=== PATIENT | male | born 1985 | race Caucasian/White ===

== ENCOUNTER → 2021-09-28 16:22 | Outpatient (CLI) | payer BC, SELFPAY ==
[2021-09-30 09:14] LABS: FSH 12.3 mIU/mL (1.5-12.4)
== END ==
PROVIDERS: Visit Provider Specialist
DX: E29.1 Testicular hypofunction (principal)
CPT/HCPCS: 36415; 82670; 83001; 83002; 84403

== ENCOUNTER → 2022-01-05 11:44 | Outpatient (CLI) | payer BC, SELFPAY ==
[2022-01-05 12:42] LABS: Hematocrit 46.2 % (42.0-52.0)
[2022-01-06 08:18] LABS: Estradiol 18.3 pg/mL (7.6-42.6)
[2022-01-14 01:08] LABS: Testosterone, Total, LC/MS 356.3 ng/dL (264.0-916.0)
== END ==
PROVIDERS: Visit Provider Specialist
DX: E29.1 Testicular hypofunction (principal)
CPT/HCPCS: 36415; 82670; 84403; 85014

== ENCOUNTER → 2022-02-10 07:48 | Outpatient (CLI) | payer BC, SELFPAY ==
[2022-02-10 08:18] LABS: Hematocrit 40.2 % (42.0-52.0)
[2022-02-11 08:22] LABS: Estradiol 29.9 pg/mL (7.6-42.6); LH 9.3 mIU/mL (1.7-8.6)
[2022-02-14 18:12] LABS: Testosterone, Total, LC/MS 548 ng/dL (.)
== END ==
PROVIDERS: Visit Provider Specialist
DX: E29.1 Testicular hypofunction (principal)
CPT/HCPCS: 36415; 82670; 83002; 84403; 85014

== ENCOUNTER 2022-09-02 13:04 | Day surgery (SDC) | payer BC, SELFPAY ==
[2022-09-02] VITALS (18 sets, daily range): BP systolic 121–160; BP diastolic 73–94; PULSE 62–96; RESP 14–20; TEMP 36.1–43; O2SAT 92–98; BMI 21.4
--- NOTE | 2022-09-02 14:10 | CT_ITS ---
FINAL REPORT TECHNIQUE: Postcontrast axial images through the abdomen and pelvis were performed. This study was performed with techniques to keep radiation doses as low as reasonably achievable, (ALARA). Individualized dose reduction techniques using automated exposure control or adjustment of mA and/or kV according to the patient's size were employed. CLINICAL HISTORY: right lower abdominal pain FINDINGS: Abdomen: There is mild scarring in the left lung base. There is fatty infiltration of the liver. The spleen is unremarkable. The adrenals are normal. The pancreas is unremarkable. The kidneys enhance appropriately. The aorta is normal in caliber. No free fluid or adenopathy is identified. No findings for mechanical bowel obstruction are identified. Pelvis: The appendix is mildly enlarged measuring 8 mm without significant adjacent inflammation. The right seminal vesicle and right vas deferens are enlarged of uncertain significance but most worrisome for inflammation/vasitis. The urinary bladder is unremarkable. No free fluid, free air, abscess or adenopathy is identified. IMPRESSION: Mildly enlarged appendix without significant adjacent inflammation, early or mild appendicitis is not excluded. If indicated, follow-up CT may be helpful. Right seminal vesicle and right vas deferens are enlarged most worrisome for inflammation/vasitis. Reviewed, Interpreted and Dictated by Adam Clark III, MD Transcribed by Isabell Avilez Authenticated and [facility]
[2022-09-02 14:28] LABS: Basophils # 0.1 K/mm3 (0-0.2); Basophils % 0.8 % (0.1-2.0); Eosinophils # 0.2 K/mm3 (0.0-0.4); Eosinophils % 2.8 % (0.1-12.0); Hematocrit 46.2 % (42.0-52.0); Hemoglobin 15.2 g/dL (14.1-18.0); Lymphocytes # 2.2 K/mm3 (0.7-4.5); Lymphocytes % 28.1 % (10-50); Mean Corpuscular HGB Conc 32.9 g/dL (31.8-35.4); Mean Corpuscular Hemoglobin 30.7 pg (27.0-31.2); Mean Corpuscular Volume 93.5 fl (80-94); Mean Platelet Volume 9.9 fl (7.4-10.4); Monocytes # 0.5 K/mm3 (0.1-1.0); Monocytes % 6.3 % (1.7-9.3); Neutrophils # 4.8 K/mm3 (1.8-7.8); Platelet Count 265 K/mm3 (142-424); Red Blood Count 4.94 M/mm3 (4.60-6.20); Red Cell Distribution Width 13.7 % (11.5-17.5); White Blood Count 7.8 K/mm3 (4.8-10.8)
--- NOTE | 2022-09-02 14:49 | PC.NURSE ---
pt in CT
--- NOTE | 2022-09-02 15:08 | HMH.EDGENADL ---
Discharge Plan Disposition Patient Disposition: Still a Patient Condition: Good Chief Complaint: Abdominal Pain Prescriptions Prescriptions: No Action cephalexin 500 MG capsule 500 mg PO TID Qty: 30 0RF hydrocodone-acetaminophen 1 TAB tablet 1 tab PO TID PRN (Reason: Moderate To Severe Pain) Qty: 12 0RF Referrals Follow up/Referrals: Provider,Referral, [Primary Care Provider] - See instructions Clinical Impressions Clinical Impression: Acute appendicitis Discharge ED Provider: Emeka Jordan General Adult HPI General Chief complaint: Abdominal Pain Stated complaint: Lower RT abd pain Time Seen by Provider: 09/02/22 15:03 Mode of Arrival: Ambulatory Source of Information: Patient Limitations: No Limitations Description of Symptoms (Recalled from ER Triage Doc. by RN): c/o lower right abdomen for 2 days, denies any n/v. States the pain is constant. History of Present Illness HPI narrative: 2-day history of right lower quadrant abdominal pain. No associated nausea, vomiting, fever, diarrhea, constipation, or urinary symptoms. Pain is worsened by physical activity. The pain has decreased in intensity since he is arrived here, but is still present. Prior history of umbilical hernia repair 5 to 6 years ago. No pain at his umbilicus. Related Data Previous Rx's Medication Instructions Recorded cephalexin 500 mg capsule 500 mg PO TID #30 caps 03/10/19 hydrocodone 5 mg-acetaminophen 325 1 tab PO TID PRN Moderate To 03/10/19 mg tablet Severe Pain #12 tabs Allergies Allergy/AdvReac Type Severity Reaction Status Date / Time No Known Drug Allergies Allergy Mild Verified 03/10/19 20:17 [NKDA] [facility] Disclaimer: The information contained in this section may have been updated after the patient was seen, as this information can be updated by other users. Social History Smoking Status: Never smoker alcohol intake: never substance use type: denies use current occupational status: employed Travel in the last 8 weeks: None household members: other ROS Obtained: Yes Systems reviewed as appropriate & no additional complaints except as documented Constitutional Constitutional: Denies fever(s), Denies headache(s) and Denies weakness ENT Ears, Nose, Mouth, and Throat: Denies headache(s), Denies nasal discharge and Denies sore throat Cardiovascular Cardiovascular: Denies chest pain Respiratory Respiratory: Denies shortness of breath and Denies cough Gastrointestinal Gastrointestingal: Reports abdominal pain; Denies constipation, diarrhea or vomiting Genitourinary Male Genitourinary: Denies difficulty urinating and Denies flank pain Musculoskeletal Musculoskeletal: Denies numbness Neurologic Neurologic: Denies headache(s), Denies numbness and Denies weakness Physical Exam General General appearance: alert and in no apparent distress Head Head exam: atraumatic and normocephalic Eye Eye exam: Present normal appearance and EOMI ENT ENT exam: Present mucous membranes moist Neck Neck exam: Present normal inspection and trachea midline Chest Chest inspection: Present normal inspection and symmetric chest wall rise Respiratory Respiratory exam: Present normal lung sounds bilaterally; Absent respiratory distress Cardiovascular Cardiovascular exam: Present regular rate, normal rhythm and normal heart sounds Abdominal Exam Abdominal exam: Present soft, tenderness, normal bowel sounds and tenderness at McBurney's Point; Absent distention, guarding, rebound, rigidity or Rovsing's sign Abdominal tenderness: Present RLQ and moderate Extremities Exam Extremities exam: Present normal inspection Neurological Exam Neurological exam: Present alert and oriented X3 Psychiatric Psychiatric exam: Present normal affect and normal mood Skin Skin exam: Present warm and dry Medical Decision Making Calderon Inquiry Pt receiving controlled substance: No Vital Signs: 09/02/22 13:30 08/06
[2022-09-02 15:17] LABS: Chloride 103 mmol/L (98-107); Potassium 4.1 mmoL/L (3.5-5.1); Sodium 138 mmol/L (136-145)
[2022-09-02 15:19] LABS: Amylase 80 U/L (30-110)
[2022-09-02 15:20] LABS: Alanine Aminotransferase 69 U/L (12-78); Albumin Level 4.5 g/dl (3.5-5.0); Albumin/Globulin Ratio 1.6 (1.1-1.8); Alkaline Phosphatase 44 U/L (38-126); Anion Gap 16.1 mEq/L (5-15); Aspartate Amino Transferase 49 U/L (17-59); Bilirubin,Total 0.3 mg/dl (0.2-1.3); Blood Urea Nitrogen 15 mg/dl (9-20); Carbon Dioxide 23 mmol/L (22.0-30.0); Creatinine Clearance Estimated 104 mL/min (50-200); Estimated Glomerular Filt Rate 94 ml/min (>60); GFR (African American) 114 ML/MIN (>60); Globulin 2.8 g/dL (1.3-3.2); Glucose 98 mg/dl (74-100); Lipase 67 U/L (23-300); Total Protein,Serum 7.3 g/dl (6.3-8.2)
--- NOTE | 2022-09-02 16:00 | PC.NURSE ---
MESSAGE LEFT FOR DR ROPER
--- NOTE | 2022-09-02 16:23 | PC.NURSE ---
Dr Jordan speaking with Dr Coates
--- NOTE | 2022-09-02 16:42 | PC.NURSE ---
per assistant executive housekeeper surgery team called in at [phone]
--- NOTE | 2022-09-02 16:51 | PC.NURSE ---
DR ROPER AT BS
--- NOTE | 2022-09-02 17:13 | PC.NURSE ---
PT resting in bed, warm blanket
--- NOTE | 2022-09-02 17:21 | EXP.ANES.CKL ---
[facility] Disclaimer: The information contained in this section may have been updated after the patient was seen, as this information can be updated by other users. Social History Smoking Status: Never smoker alcohol intake: never substance use type: denies use current occupational status: employed Travel in the last 8 weeks: None household members: other [facility] Anesthesia Checklist Patient Identification Patient Identification: Arm Band and Verbal (Name & ) Structural Data Admitted From: Emergency Dept Planned Operative Procedure/s: Lap. appy Consent for Planned Operative Procedure(s) Verified: Yes NPO Status Verified Time NPO: 10:30 Chart Verification Results Verified: CBC and BMP Airway Assessment C-Spine Mobility Assessed: Yes TMJ Mobility Assessed: Yes Dentition: Good Dentition Neurological Assessment Level of Consciousness: Awake Hx Seizures: No Numbness or tingling in extremities: No Anesthesia Plan Anesthesia Risk discussed: Yes Anesthesia Plan: Verified ASA Class: I Anesthesia Type: General
--- NOTE | 2022-09-02 17:21 | PC.NURSE ---
pt transport to surgery by surgery staff
--- NOTE | 2022-09-02 18:46 | EXP.OP.NOTE ---
Date of procedure: 09/02/22 Pre-op Diagnosis:: Appendicitis Post-op Diagnosis:: Same Procedure performed:: Laparoscopic appendectomy Surgeon:: Juan Coates MD RADIOLOGY ADMINISTRATOR:: Hermes Arthur Anesthesia: [place] Estimated blood loss (mL): 15 Operative findings:: Enlarged inflamed appendix with no evidence of perforation Operative note:: After informed consent was obtained the patient was taken to the operating room and placed in the supine position. General anesthesia was induced and his abdomen was prepped and draped in a sterile fashion. After infiltration local anesthetic a supraumbilical incision was made. A Veress needle was placed in position. The abdomen was insufflated. A 12 mm optical trocar was placed in position. Under direct visualization a 5 mm trocar was placed in the suprapubic position and an additional 5 mm trocar was placed in the left lower quadrant. The appendix was carefully elevated. The appendix was enlarged and inflamed but no evidence of perforation was noted. The mesoappendix was taken with harmonic lambert. An Endopath 45 stapling device was used to transect the appendix at its base. The appendix was placed in a retrieval bag and removed through the supraumbilical trocar site. The right lower quadrant was thoroughly irrigated. No evidence of injury or active bleeding was noted. Fascia at the supraumbilical trocar site was reapproximated with interrupted 0 Ethibond. Pneumoperitoneum was released as the remaining trocars were removed. All wounds were irrigated and skin was closed with 4-0 Monocryl in a mattress fashion to facilitate hemostasis. Dressings were applied and patient was transferred to recovery in stable condition. Condition: stable Disposition: PACU Specimens:: Appendix Complications:: No immediate
--- NOTE | 2022-09-02 18:59 | EXP.ANES.I ---
[facility] Anesthesia Record Part I Anesthesia Record I Intake, IV Amount: 800 Estimated blood loss (mL): 20 Urine output (mL): 0 Blood Pressure: 142/90 SaO2: 92 Pulse Rate: 79 Respiratory Rate: 14 Temperature: 97 F Patient is:: Drowsy and Oral/Nasal airway Stable to PACU at:: 18:55
--- NOTE | 2022-09-03 08:13 | P.PNANES_ITS ---
[facility] Anesthesia Record Part II Anesthesia Record Part II Discharge Time: 19:25 Destination: Surgical Day Care (OP Surgery) PACU nurse assessment reviewed?: Yes Patient Condition:: Good Anesthesia Complications:: None Swallowing reflex intact?: Yes Cyanosis?: No Blood Pressure: 160/90 Pulse Rate: 85 Temperature: 97.1 F Mental Status: Alert & Oriented Pain level:: 0 Nausea and/or vomitting:: None Intake, IV Amount: 0
[2022-09-03 08:14] VITALS: BP 160/90; PULSE 85; TEMP 36.2
== END 2022-09-02 19:56 | disposition home or self-care (01) ==
LOC: ER 17:00 → SDC 09-09 11:33
PROVIDERS: PCP Surgery; Visit Provider Emergency Medicine
PROC: 0DTJ4ZZ Resection of Appendix, Percutaneous Endoscopic Approach (ICD-10-PCS; CPT 44970; principal; 2022-09-02 17:00)
DX: K35.80 Unspecified acute appendicitis (principal)
CPT/HCPCS: 44970; 74177; 80053; 82150; 83690; 85025; 88304; 99285; J0131; J0696; J2405; Q9967

== ENCOUNTER → 2022-09-03 12:00 | Outpatient (CLI) | payer BC, SELFPAY ==
[2022-09-03 13:02] LABS: Basophils # 0.1 K/mm3 (0-0.2); Basophils % 0.4 % (0.1-2.0); Eosinophils % 0.2 % (0.1-12.0); Hemoglobin 13.9 g/dL (14.1-18.0); Lymphocytes # 1.8 K/mm3 (0.7-4.5); Lymphocytes % 12.1 % (10-50); Mean Corpuscular HGB Conc 31.7 g/dL (31.8-35.4); Mean Corpuscular Hemoglobin 30.7 pg (27.0-31.2); Mean Corpuscular Volume 96.9 fl (80-94); Mean Platelet Volume 9.5 fl (7.4-10.4); Monocytes % 6.6 % (1.7-9.3); Neutrophils # 12.2 K/mm3 (1.8-7.8); Neutrophils % 80.7 % (37.0-80.0); Platelet Count 272 K/mm3 (142-424); Red Blood Count 4.54 M/mm3 (4.60-6.20); Red Cell Distribution Width 13.9 % (11.5-17.5); White Blood Count 15.1 K/mm3 (4.8-10.8)
[2022-09-03 13:03] LABS: MANUAL DIFFERENTIAL MANUAL DIFFERENTIAL (MANUAL DIFF)
[2022-09-03 14:43] LABS: Lymphocytes % 12 % (10-50); Monocytes % 4 % (2-9); Neutrophils % 83 % (42-76); Platelet Estimate Normal; RBC Morphology Normal; Total Cells Counted 100
== END ==
PROVIDERS: Visit Provider Surgery
DX: K35.80 Unspecified acute appendicitis (principal)
CPT/HCPCS: 36415; 85007; 85025